=== PATIENT | female | born 1930 | race Caucasian/White ===

== ENCOUNTER 2020-04-13 19:08 | Emergency (ER) | payer MEDICARE, OTHER ==
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
--- NOTE | 2020-04-13 20:18 | RAD REPORT ---
EXAM DESCRIPTION: RAD - Hand Right 3 View - 04/13/2020 8:04 pm CLINICAL HISTORY: Right hand pain status post injury FINDINGS: No fracture or dislocation is seen. 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 Moderate narrowing most of the remainder of the PIP, and DIP and MCP joints Osteoporosis
--- NOTE | 2020-04-13 20:21 | RAD REPORT ---
EXAM DESCRIPTION: RAD -Hand Left 3 View - 04/13/2020 8:04 pm CLINICAL HISTORY: Left hand pain status post injury FINDINGS: A mildly displaced fracture involves proximal aspect of the first metacarpal First proximal phalanx is dislocated laterally. This could be acute or chronic and should be correlat ed clinically Marked narrowing of the radioscaphoid joint Moderate narrowing of MCP in several DIP and PIP joints as well as the first carpometacarpal joint. Osteoporosis
[2020-04-13] MEDS ORDERED: LIDOCAINE 2% MPF 5 ML VIAL ONE (20:53)
[2020-04-13] MEDS ORDERED: BUPIVACAINE 0.5% PF 10 ML VIAL ONE (20:53)
[2020-04-13] MEDS ORDERED: TETANUS & DIPHTHERIA TOX,ADULT 0.5 ML VIAL ONE (20:53)
[2020-04-13] MEDS ORDERED: DERMABOND SKIN ADHESIVE TOP ONE (20:53)
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
--- NOTE | 2020-04-13 21:22 | RAD REPORT ---
EXAM DESCRIPTION: RAD - Hand Left 2 View - 04/13/2020 9:13 pm CLINICAL HISTORY: Left hand pain status post injury FINDINGS: Previously described proximal phalanx dislocation has been reduced. Minimally displaced oblique fracture proximal aspect of the first metacarpal
[2020-04-13 22:11] VITALS: BP 150/76; TEMP 97.5; O2SAT 97
== END 2020-04-13 21:55 | disposition home or self-care (01) ==
LOC: ER 19:08
PROC: 2W3HX1Z Immobilization of Left Thumb using Splint (ICD-10-PCS; principal; 2020-04-13)
DX: S62.512A Displaced fracture of proximal phalanx of left thumb, initial encounter for closed fracture (principal); W17.89XA Other fall from one level to another, initial encounter; Y93.9 Activity, unspecified; Y92.9 Unspecified place or not applicable; Z23 Encounter for immunization; Z79.01 Long term (current) use of anticoagulants; F17.210 Nicotine dependence, cigarettes, uncomplicated; I10 Essential (primary) hypertension; I48.91 Unspecified atrial fibrillation; I50.9 Heart failure, unspecified
CPT/HCPCS: 70450; 70486; 90471; 90714; 99284